=== PATIENT | male | born 1985 | race Caucasian/White ===

== ENCOUNTER 2020-05-27 16:43 | Outpatient (CLI) | payer BC | END 2020-05-27 16:44 | disposition home or self-care (01) | LOC: COV 16:43 | PROVIDERS: ATTEND Family Medicine | DX: R07.0 Pain in throat (principal); R09.81 Nasal congestion; J34.89 Other specified disorders of nose and nasal sinuses; Z20.822 Contact with and (suspected) exposure to COVID-19 ==